=== PATIENT | male | born 1955 | race Caucasian/White ===

== ENCOUNTER 2017-05-17 09:21 | Emergency (ER) | payer SELFPAY ==
[2017-05-17 10:09] VITALS: BP 152/90
--- NOTE | 2017-05-17 11:00 | UC ---
Throat Pain/Nasal Sergey HPI - HPI Summary HPI Summary: Congestion, cough and sinus pressure for about three weeks. No recent fever. Cough is mainly dry. No lung disease. non smoker. - History of Current Complaint Chief Complaint: UCGeneralIllness Stated Complaint: WEAK SINUS COMPLAINT Time Seen by Provider: 05/17/17 10:47 Hx Obtained From: Patient Onset/Duration: Lasting Weeks, Still Present Severity: Moderate Cough: Nonproductive Associated Signs & Symptoms: Positive: Sinus Discomfort. Negative: Dysphagia, Fever, Vomiting, Rash - Allergies/Home Medications Allergies/Adverse Reactions: Allergies Allergy/AdvReac Type Severity Reaction Status Date / Time No Known Allergies Allergy Verified 05/17/17 10:09 PMH/Surg Hx/FS Hx/Imm Hx - Additional Past Medical History Additional PMH: No known lung disease. - Surgical History Surgical History: None Surgery Procedure, Year, and Place: SPLEENECTOMY, [facility] - Family History Known Family History: Positive: Other - no related lung disease. - Social History Alcohol Use: Occasionally Substance Use Type: None Smoking Status (MU): Never Smoked Tobacco - Immunization History Most Recent Influenza Vaccination: NO CURRENT Review of Systems ENT: Sinus Congestion, Sinus Pain/Tenderness Respiratory: Cough All Other Systems Reviewed And Are Negative: Yes Physical Exam Triage Information Reviewed: Yes Appearance: Well-Appearing, No Pain Distress, Well-Nourished Vital Signs: Initial Vital Signs Temp 98.8 F 05/17/17 10:04 Pulse 65 05/17/17 10:04 Resp 18 05/17/17 10:04 BP 152/90 05/17/17 10:04 Pulse Ox 100 05/17/17 10:04 Vital Signs Reviewed: Yes Eyes: Positive: Conjunctiva Clear ENT: Positive: Pharynx normal, Nasal congestion, Sinus tenderness, Uvula midline. Negative: Tonsillar swelling, Tonsillar exudate, Trismus, Muffled voice Neck exam: Normal Neck: Positive: Supple, Nontender, No Lymphadenopathy Respiratory: Positive: Chest non-tender, Lungs clear, Normal breath sounds, No respiratory distress, No accessory muscle use. Negative: Respiratory distress, Decreased breath sounds, Accessory muscle use, Crackles, Rhonchi, Stridor Cardiovascular: Positive: RRR, No Murmur, Pulses Normal, Brisk Capillary Refill Abdomen Description: Positive: Nontender, No Organomegaly, Soft. Negative: Distended, Guarding Musculoskeletal: Positive: Strength Intact, ROM Intact, No Edema Neurological: Positive: Alert, Muscle Tone Normal, Fatigued Psychological: Positive: Age Appropriate Behavior Skin: Negative: rashes Throat Pain/Nasal Course/Dx - Course Course Of Treatment: comfortable and pleasant with benign exam. Sinus symptoms for 3 weeks. we will try antibiotics. No sign of pneumonia or respirtory disease. - Differential Dx/Diagnosis Provider Diagnoses: uri. sinusitis Discharge - Discharge Plan Condition: Good Disposition: HOME Prescriptions: Cefdinir [Cefdinir 300 MG CAP] 300 mg PO BID #20 cap Patient Education Materials: Sinusitis (ED) Referrals: No Primary Care Phys,NOPCP [Primary Care Provider] - Additional Instructions: Decongestants and antibiotics as we discussed.
== END 2017-05-17 11:01 | disposition home or self-care (01) ==
LOC: UCCORT 09:21
DX: J01.90 Acute sinusitis, unspecified (principal)
CPT/HCPCS: 99202; G0463